=== PATIENT | male | born 1975 | race Caucasian/White ===

== ENCOUNTER 2019-03-05 10:19 | Emergency (ER) | payer BC ==
--- NOTE | 2019-03-05 10:23 | UC ---
Throat Pain/Nasal Star HPI - HPI Summary HPI Summary: Diabetic, with 3 days of gradual onset of swelling right side of neck and throat pain. Having difficulty swallowing and has been spitting out hsi saliva for the past 3 days. Initially had fever. Very tender adenopathy on the right side of the neck. Blood sugar today is 191. He uses insulin q daily, last dose was yesterday noon. No cough. Currently travelling, residence is in [place]. - History of Current Complaint Stated Complaint: THROAT SWOLLEN Time Seen by Provider: 03/05/19 10:22 Hx Obtained From: Patient Onset/Duration: Gradual Onset, Lasting Days - 3 Severity: Severe Cough: None Associated Signs & Symptoms: Positive: Dysphagia - Epiglottits Risk Factors Epiglottis Risk Factors: Muffled Voice - Allergies/Home Medications Allergies/Adverse Reactions: Allergies Allergy/AdvReac Type Severity Reaction Status Date / Time No Known Allergies Allergy Verified 03/05/19 10:21 Home Medications: Home Medications Acetaminophen TAB* [Tylenol TAB*] 650 mg PO Q4H PRN 03/05/19 [History Confirmed 03/05/19] Insulin Detemir (NF) [Levemir (NF)] 0 unit SUBCUT DAILY 03/05/19 [History Confirmed 03/05/19] Lisinopril 40 mg PO DAILY 03/05/19 [History Confirmed 03/05/19] Pantoprazole TAB * [Protonix TAB*] 40 mg PO DAILY 03/05/19 [History Confirmed ] Pseudoephedrine TAB* [Sudafed TAB*] 30 mg PO Q6H PRN 03/05/19 [History Confirmed 03/05/19] Simvastatin [Zocor 5 MG-] 10 mg PO DAILY 03/05/19 [History Confirmed 03/05/19] amLODIPine TAB* [Norvasc 5 mg TAB*] 10 mg PO DAILY 03/05/19 [History Confirmed 03/05/19] hydroCHLOROthiazide [Hydrochlorothiazide] 12.5 mg PO DAILY 03/05/19 [History Confirmed 03/05/19] PMH/Surg Hx/FS Hx/Imm Hx Endocrine History: Diabetes, Other - morbid obesity Cardiovascular History: Hypertension GI/ History: Gastroesophageal Reflux - Family History Known Family History: Positive: Non-Contributory - Social History Occupation: Employed Full-time Lives: With Family Alcohol Use: None Review of Systems All Other Systems Reviewed And Are Negative: Yes Constitutional: Positive: Fever, Fatigue ENT: Positive: Sore Throat, Other - very tender nodes right side of neck Respiratory: Positive: Negative Cardiovascular: Positive: Palpitations Gastrointestinal: Positive: Negative Genitourinary: Positive: Negative Motor: Positive: Negative Musculoskeletal: Positive: Negative Physical Exam Triage Information Reviewed: Yes Appearance: Ill-Appearing, Pain Distress - moderate, Obese ENT: Positive: Pharyngeal erythema, Tonsillar swelling - tonsils touching in midline, with erythema and exudate Neck: Positive: Supple, Nontender, Enlarged Nodes @ - marked enlargement of the right tonsillar node, tender to touch. Respiratory: Positive: Lungs clear, Normal breath sounds Cardiovascular: Positive: RRR, Tachycardia Musculoskeletal Exam: Normal Neurological: Positive: Alert, Muscle Tone Normal Psychological Exam: Normal Skin Exam: Other - moderately severe facial sunburn Re-Evaluation - Re-Evaluation First Eval Re-Evaluation Time: 11:30 - possibly some improvement; tolerated injections Change: Improved Throat Pain/Nasal Course/Dx - Course Course Of Treatment: Rocephin given, follow up amoxicillin for treatment. Adjust insulin as needed. Increase fluids, ibuprofen as needed. - Differential Dx/Diagnosis Differential Diagnosis/HQI/PQRI: Peritonsillar Abscess, Tonsillitis, URI Provider Diagnosis: Strep pharyngitis Discharge - Sign-Out/Discharge Documenting (check all that apply): Patient Departure All imaging exams completed and their final reports reviewed: No Studies - Discharge Plan Condition: Stable Disposition: HOME Prescriptions: Amoxicillin PO (*) [Amoxicillin 875 MG (*)] 875 mg PO BID #20 tab Patient Education Materials: Strep Throat (ED) Referrals: No Primary Care Phys,NOPCP [Primary Care Provider] - Additional Instructions: For treatment of strep tonsillitis, you have received the following medications: Solumedrol 125mg in the muscle to relieve tonsillar swelling. This can elevated your blood sugars for a number of days and you might need to adjust your insulin dosing. Rocephin 1 gram was given due to the severity of the strep and the prominent associated lymph node enlargement. Take the first dose of amoxicillin this evening and ensure that you take the full course of treatment. Ensure a high intake of fluids--take frequent sips. Safe travelling. - Billing Disposition and Condition Condition: STABLE Disposition: Home
[2019-03-05] MEDS ORDERED: methylPREDNISolone 125 MG* 2 ML VIAL IM ONE (10:52)
[2019-03-05] MEDS ORDERED: Lidocaine 1% MPF* 2 ML VIAL INJ ONE (10:53)
[2019-03-05] MEDS ORDERED: cefTRIAXone VIAL(*) 1,000 MG VIAL IM ONE (10:53)
[2019-03-05] MEDS ORDERED: Ibuprofen ADULT LIQ* 600 MG/30 ML UDC PO ONE (11:28)
[2019-03-05 11:45] VITALS: BP 144/90
== END 2019-03-05 11:49 | disposition home or self-care (01) ==
LOC: UCCORT 10:19
DX: J02.0 Streptococcal pharyngitis (principal); B95.0 Streptococcus, group A, as the cause of diseases classified elsewhere; E11.9 Type 2 diabetes mellitus without complications; Z79.4 Long term (current) use of insulin; I10 Essential (primary) hypertension; E66.01 Morbid (severe) obesity due to excess calories; K21.9 Gastro-esophageal reflux disease without esophagitis
CPT/HCPCS: 87651; 96372; 99202; A9270-GY; G0463; J0696; J2930